=== PATIENT | female | born 1985 | race Caucasian/White ===

== ENCOUNTER 2018-03-15 16:31 | Observation (INO) | payer BC, SELFPAY ==
[2018-03-15] VITALS (10 sets, daily range): BP systolic 95–116; BP diastolic 53–67; PULSE 57–77; RESP 15–18; TEMP 36.7–37.5; O2SAT 92–100; BMI 29.3
--- NOTE | 2018-03-15 | APP_PTH ---
PATIENT: CHI DOMINGUEZ LOC: MS2 U#:[id number] AGE/SX: 32/F ROOM: [facility] RE03/15/[address]: Dr. Ambrose Stinson MD : [id number] BED: 1 DIS: 03/16/2018 SPEC #: [id number] RECD: 03/16/18 11:22 STATUS: CARY REEvaristo #: [id number] [place]: 03/15/18 00:[address]: Ambrose Stinson DEPT: SURGICAL PATHOLOGY RECD BY: Yoana Reyes ENTERED: 03/16/18 12:15 SP TYPE: APPENDIX OTHR DR: MD Angel Small MD Tissues: Appendix, NOS Procedures: Surgery Specimen Level III HEADER OPERATION: Laparoscopic, appendectomy PRE-OP DIAGNOSIS: Acute appendicitis TISSUE SUBMITTED: Appendix MICROSCOPIC DIAGNOSIS Appendix, appendectomy: Acute appendicitis and periappendicitis. SJ:az 03/17/18 MICROSCOPIC DESCRIPTION Slides are reviewed. GROSS DESCRIPTION Received is one container labeled with the patient's name and designated appendix. The specimen consists of a J-shaped appendix measuring 7.5 cm in length and up to 1 cm in average diameter. The attached periappendiceal adipose tissue measures up to 1.5 cm in width. The serosa is covered with posadas, purulent exudate. No obvious perforation is identified. The lumen does not contain any fecalith. Bosom Presser sections are submitted in one cassette. / SJ:az 03/16/18 TC:2 CPT: 56792
--- NOTE | 2018-03-15 16:54 | CT_ITS ---
STUDY: CT ABDOMEN AND PELVIS WITH CONTRAST REASON FOR EXAM: Female, 32 years old. Right lower quadrant pain. RADIATION DOSAGE (If Supplied By Facility): CTDIvol = ( 14.29 ) mGy, DLP = ( 789.25 ) mGycm TECHNIQUE: Transaxial images were obtained from the dome of the diaphragm to the symphysis pubis with oral contrast. 100 ml of Isovue 300 contrast was administered. Sagittal and coronal images were reconstructed. Individualized dose optimization techniques were used for this CT. COMPARISON: None. FINDINGS: The visualized lung bases are unremarkable. The visualized portions of the heart are within normal limits. Mild hepatomegaly versus Ysabel's lobe. The liver is otherwise unremarkable. Normal gallbladder and extrahepatic biliary system. Normal spleen. Normal pancreas. Normal bilateral adrenal glands. Normal right kidney. Normal left kidney. Normal visualized stomach. Normal small intestine. Normal colon. The gallbladder measures 1 cm in diameter. The gallbladder wall is 3 mm in thickness. There is no evidence of phlebolith. There is no marked right lower quadrant inflammatory change. Normal abdominal aorta. Normal inferior vena cava. Normal retroperitoneum. Normal urinary bladder. Normal uterus. There are follicles in both ovaries. There is an involuting cyst in the left ovary measuring 1.8 x 1.7 x 1.5 cm. No pelvic lymphadenopathy. No free air is seen in the abdominal cavity. There is minimal free fluid in the posterior cul-de-sac. To be physiologic. There is an umbilical hernia of omental fat. The abdominal wall is otherwise unremarkable. Normal osseous structures. CT/Abdomen/Pelvis WITH Contrast IMPRESSION: 1. Mildly distended thick-walled appendix without stranding. Question mild appendicitis. 2. Involuting left ovarian cyst. 3. Hepatomegaly versus Ysabel's lobe. Koffi Allen M.D., was advised of these findings via direct telephone communication at 1829 hours EST on March 15, 2018. Electronically Signed: Nitesh Castandea DO at 18:28 EDT Tel [phone], Service support ,
[2018-03-15] MEDS: 0.9% Normal Saline 1,000 ML 1000 ML IV (17:06)
[2018-03-15] MEDS: Morphine 4 MG/ML Syringe IV (17:06)
[2018-03-15] MEDS: Ondansetron 4 MG/2 ML Vial IV (17:06)
[2018-03-15 17:12] LABS: Mucous, Urine 0 SEEN /hpf (<or=2+)
[2018-03-15 17:14] LABS: Absolute Neutrophil Count 11.2 X10^3/uL (2.0-7.7); Basophil# 0.01 X10^3/uL; Basophil% 0.1 % (0-1); Eosinophil# 0.04 X10^3/uL; Eosinophils% 0.3 % (0-5); Hematocrit 40.7 % (37-47); Hemoglobin 13.5 g/dl (12.0-15.0); Lymphocyte % 7.6 % (19-41); Mean Corp Hgb Conc 33.2 g/gl (32-36); Mean Corpuscular Hgb 30.1 pg (27.0-32.0); Mean Corpuscular Volume 90.8 fL (81-99); Mean Platelet Vol. 9.2 fl (6.2-12.0); Monocyte# 0.85 X10^3/uL; Monocyte% 6.5 % (0-10); Neutrophil # 11.24 X10^3/uL (2.7-7.7); Neutrophil % 85.3 % (47-70); Platelet Count 270 K/mm3 (150-450); RBC Distribution Width CV 13.1 % (11.6-14.6); RBC Distribution Width SD 42.9 fl (35.1-43.9); Red Blood Count 4.48 M/mm3 (4.2-5.4); White Blood Count 13.2 K/mm3 (4.4-11.0)
[2018-03-15 17:16] LABS: POSITIVE COUNT NO; POSITIVE DIFFERENTIAL NO; POSITIVE MORPHOLOGY NO
[2018-03-15 17:23] LABS: Color, Urine Yellow (Yellow); Glucose, Dipstick Normal (Normal); Ketone-Dipstick 50 mg/dl (Negative); Leukocyte Esterase-Dipstick 100 /ul (Negative); Nitrite-Dipstick Negative (Negative); Occult Blood-Urine Negative /ul (Negative); Protein-Dipstick 15 mg/dl (Negative); Urine Bilirubin Dipstick Negative (Negative); Urine Clarity Sl. Cloudy (Clear); Urine Urobilinogen Normal (Normal)
[2018-03-15 17:31] LABS: Anion Gap 8 (5-15); BUN 9 mg/dL (7-18); Calcium,Total 8.5 mg/dL (8.5-10.1); Chloride 106 mmol/L (98-107); EST Glomerular Filtration Rate 78 mL/min (>60); Est Glom Filt Rate - Afr Amer 94 mL/min (>60); Estimated Creatinine Clearance 78.93 ml/min; Glucose 103 mg/dL (74-106); Potassium 3.7 mmol/L (3.5-5.1); Sodium Level 141 mmol/L (136-145)
[2018-03-15 17:38] LABS: Bacteria 1+ /hpf (None Seen); Red Blood Cells-Urine 0-5 SEEN /hpf (0-5); Squamous Epithelial Cells - UA 0-5 SEEN /hpf (5-10); White Blood Cells 5-10 SEEN /hpf (0-5)
[2018-03-15 17:54] LABS: Pregnancy, Serum, hCG Quali. NEGATIVE Negative (0-9 Nonpreg)
--- NOTE | 2018-03-15 18:24 | ED.DCSUM_ITS ---
- ER Visit Summary Date of Service: 03/15/18 Chief Complaint: Abdominal pain History of Present Illness: The patient is a [address] Angel Allen. She reports that she has abdominal pain began at 1:00 this morning. It began in the periumbilical region is moved to her lower abdomen. She describes as an aching pain that is gradually worsened. It is 9 out of 10 at worst and 7 out of 10 currently. Is worsened by movement or pushing on it. Is relieved by remaining still. She has been nausea and vomited twice. No blood or emesis. No diarrhea. Her last bowel was today. She has had no melena or rheumatic. No dysuria or frequency. Patient does complain of subjective fever and chills. Her last menstrual was approximately 2 weeks ago. She denies any vaginal bleeding or discharge. Physical Examination: Vitals: Stable. Afebrile. General: Well-nourished and well-developed. Head: Normocephalic atraumatic. Neck: Supple, no lymphadenopathy. No JVD. Nontender. Cardiovascular: Regular rate and rhythm. No murmurs. Respiratory: No respiratory distress. Clear to auscultation bilaterally. Abdominal: Soft, moderate diffuse dorsal patient over her lower abdomen that is worst in the right lower quadrant, nondistended, normal bowel sounds. No guarding, rebound, or peritoneal signs. Back: Nontender. Extremities: Nontender, no edema. Skin: Normal color, no rash. Neurologic: Alert and oriented ?3. Cranial nerves II through XII are intact. Normal strength and sensation. Psych: Normal affect. Test Results: CBC is remarkable for a white count of 13.2 with 85 segmented neutrophils and 8 lymphocytes. Chem-7 is normal. UA shows 5-10 white blood cells and 1+ bacteria. test is negative. CT shows early appendicitis. Emergency Department Course and Treatment: Patient was treated with morphine and Zofran IV. She is resting comfortably. She was given Zosyn IV. Treatment Plan: The patient was discussed with Dr. Ambrose Stinson. She will be taken to the operating room for further treatment. Disposition: Admitted in stable condition. Impression: 1. Appendicitis. This note was generated with [employer] dictation software. It may contain incorrect words, spelling, and punctuation that were not noted in review of the chart prior to signing ED Disposition - Plan for ED Patient: Chief Complaint: Abd Pain
--- NOTE | 2018-03-15 18:47 | PCM.HP.STD ---
Problem List (1) Acute appendicitis Status: Acute Qualifiers: Acute appendicitis type: unspecified acute appendicitis type Qualified Code(s): K35.80 - Unspecified acute appendicitis History of Present Illness Date of Admission: 03/15/18 The patient is a 32 year old F who developed severe abdominal pain last night. She had fever and chills. The pain persisted localizing to the right lower quadrant. Because the pain persisted she then went to see her primary care physician Dr. VANESSA Allen. He was concerned about possible surgical abdomen referred the patient to the emergency room. White blood cell count 13.2 with hemoglobin 13.5 and hematocrit 40.7 and platelet count of 270,000. Differential showing 85% neutrophils. Renal function is normal. Urinalysis has slight protein slight ketones. Leukocyte esterase is 100. White blood cells 5-10. 1+ bacteria. A CT scan was obtained suggesting an acute thick-walled appendix. 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 ?3 Smoking Status: Never smoker Tobacco Use: Non-smoker Review of Systems Constitutional: Reports: Chills, Fever, Night Sweats Eyes: Denies: Blurred vision HEENT: Denies: Difficulty Hearing Cardiovascular: Denies: Chest Pain Respiratory: Denies: Cough Gastrointestinal: Reports: Abdominal Pain Genitourinary: Denies: Dysuria Skin: Denies: Dryness Psychiatric: Denies: Anxiety Endocrine: Denies: Change in Body Habitus VTE Information - Inpt Only VTE Present on Admission: No Patient Problems: Active and Suspected Problems Acute appendicitis (Acute) - Physical Exam General: Alert, Oriented x3, Cooperative, No apparent distress HEENT: Atraumatic Oral: Moist Mucosa Neck: Supple Lungs: Clear to auscultation Cardiovascular: Regular rate, Regular Rhythm Abdomen: Soft, Hypoactive Bowel Sounds, - - Focally tender to palpation right lower quadrant with guarding Extremities: No clubbing Musculoskeletal: No Tenderness to Palpation of Joints or Extremities Neurological: Cranial nerves II-XII grossly intact Psych/Mental Status: Normal Affect Vital Signs Temp Pulse Resp BP Pulse Ox 98.1 F 77 15 116/67 100 03/15/18 16:32 03/15/18 16:32 03/15/18 16:32 03/15/18 16:32 03/15/18 16:32 Oxygen Delivery Method Room Air Weight: 170 lb 13.732 oz Body Mass Index (BMI) 29.3 Laboratory Tests Past 24 Hrs 03/15/18 03/15/18 03/15/18 17:05 17:05 17:05 WBC 13.2 H RBC 4.48 Hgb 13.5 Hct 40.7 MCV 90.8 MCH 30.1 MCHC 33.2 RDW 13.1 RDW Differential 42.9 Plt Count 270 MPV 9.2 Immature Gran % (Auto) 0.200 Neut % (Auto) 85.3 H Lymph % (Auto) 7.6 L [place] % (Auto) 6.5 Eos % (Auto) 0.3 Baso % (Auto) 0.1 Absolute Neuts (auto) 11.2 H Absolute Lymphs (auto) 1.00 Total Counted Not Reportable Sodium 141 Potassium 3.7 Chloride 106 Carbon Dioxide 27.0 Anion Gap 8 BUN 9 Creatinine 0.90 Estim Creat Clear Calc 78.93 Est GFR (MDRD) Af Amer 94 Est GFR (MDRD) Non-Af 78 BUN/Creatinine Ratio 10.0 Glucose 103 Calcium 8.5 Serum , Qual NEGATIVE Urine Color Urine Clarity Urine pH Ur Specific [place] Urine Protein Urine Glucose (UA) Urine Ketones Urine Occult Blood Urine Nitrite Urine Bilirubin Urine Urobilinogen Ur Leukocyte Esterase Urine RBC Urine WBC Ur Squamous Epith Cells Urine Bacteria Urine Mucus 03/15/18 17:05 WBC RBC Hgb Hct MCV MCH MCHC RDW RDW Differential Plt Count MPV Immature Gran % (Auto) Neut % (Auto) Lymph % (Auto) [place] % (Auto) Eos % (Auto) Baso % (Auto) Absolute Neuts (auto) Absolute Lymphs (auto) Total Counted Sodium Potassium Chloride Carbon Dioxide Anion Gap BUN Creatinine Estim Creat Clear Calc Est GFR (MDRD) Af Amer Est GFR (MDRD) Non-Af BUN/Creatinine Ratio Glucose Calcium Serum , Qual Urine Color Yellow Urine Clarity Sl. Cloudy Urine pH 6.0 Ur Specific [place] 1.010 Urine Protein 15 H Urine Glucose (UA) Normal Urine Ketones 50 H Urine Occult Blood Negative Urine Nitrite Negative Urine Bilirubin Negative Urine Urobilinogen Normal Ur Leukocyte Esterase 100 H Urine RBC 0-5 SEEN Urine WBC 5-10 SEEN Ur Squamous Epith Cells 0-5 SEEN Urine Bacteria 1+ Urine Mucus 0 SEEN Assessment/Plan All Active Problems Acute appendicitis (Acute) Spontaneous vaginal delivery (Acute) 38 weeks gestation of (Acute) Findings are very much consistent with acute appendicitis. With the patient's mother present I have discussed recommendations for lap scopic appendectomy. I did briefly discuss nonoperative therapy. She is aware of the technique, benefits, risks, alternatives. She has had an opportunity to ask and have questions answered. With a mild leukocytosis and now almost a 24 history of pain I prefer proceeding on directly. She has had an opportunity to ask and have questions answered. We will proceed as OR timing permits. Ambrose Stinson M.D., F.A.C.S.
--- NOTE | 2018-03-15 18:54 | HP.PCM_ITS ---
Problem List (1) Acute appendicitis Status: Acute Qualifiers: Acute appendicitis type: unspecified acute appendicitis type Qualified Code (s): K35.80 - Unspecified acute appendicitis History of Present Illness Date of Admission: 03/15/18 The patient is a 32 year old F who developed severe abdominal pain last night. She had fever and chills. The pain persisted localizing to the right lower quadrant. Because the pain persisted she then went to see her primary care physician Dr. VANESSA Allen. He was concerned about possible surgical abdomen referred the patient to the emergency room. White blood cell count 13.2 with hemoglobin 13.5 and hematocrit 40.7 and platelet count of 270,000. Differential showing 85% neutrophils. Renal function is normal. Urinalysis has slight protein slight ketones. Leukocyte esterase is 100. White blood cells 5-10. 1+ bacteria. A CT scan was obtained suggesting an acute thick- walled appendix. 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 ?3 Smoking Status: Never smoker Tobacco Use: Non-smoker Review of Systems Constitutional: Reports: Chills, Fever, Night Sweats Eyes: Denies: Blurred vision HEENT: Denies: Difficulty Hearing Cardiovascular: Denies: Chest Pain Respiratory: Denies: Cough Gastrointestinal: Reports: Abdominal Pain Genitourinary: Denies: Dysuria Skin: Denies: Dryness Psychiatric: Denies: Anxiety Endocrine: Denies: Change in Body Habitus VTE Information - Inpt Only VTE Present on Admission: No Patient Problems: Active and Suspected Problems Acute appendicitis (Acute) - Physical Exam General: Alert, Oriented x3, Cooperative, No apparent distress HEENT: Atraumatic Oral: Moist Mucosa Neck: Supple Lungs: Clear to auscultation Cardiovascular: Regular rate, Regular Rhythm Abdomen: Soft, Hypoactive Bowel Sounds, - - Focally tender to palpation right lower quadrant with guarding Extremities: No clubbing Musculoskeletal: No Tenderness to Palpation of Joints or Extremities Neurological: Cranial nerves II-XII grossly intact Psych/Mental Status: Normal Affect Vital Signs Temp Pulse Resp BP Pulse Ox 98.1 F 77 15 116/67 100 03/15/18 16:32 03/15/18 16:32 03/15/18 16:32 03/15/18 16:32 03/15/18 16:32 Oxygen Delivery Method Room Air Weight: 170 lb 13.732 oz Body Mass Index (BMI) 29.3 Laboratory Tests Past 24 Hrs 03/15/18 03/15/18 03/15/18 17:05 17:05 17:05 WBC 13.2 H RBC 4.48 Hgb 13.5 Hct 40.7 MCV 90.8 MCH 30.1 MCHC 33.2 RDW 13.1 RDW Differential 42.9 Plt Count 270 MPV 9.2 Immature Gran % (Auto) 0.200 Neut % (Auto) 85.3 H Lymph % (Auto) 7.6 L [place] % (Auto) 6.5 Eos % (Auto) 0.3 Baso % (Auto) 0.1 Absolute Neuts (auto) 11.2 H Absolute Lymphs (auto) 1.00 Total Counted Not Reportable Sodium 141 Potassium 3.7 Chloride 106 Carbon Dioxide 27.0 Anion Gap 8 BUN 9 Creatinine 0.90 Estim Creat Clear Calc 78.93 Est GFR (MDRD) Af Amer 94 Est GFR (MDRD) Non-Af 78 BUN/Creatinine Ratio 10.0 Glucose 103 Calcium 8.5 Serum , Qual NEGATIVE Urine Color Urine Clarity Urine pH Ur Specific [place] Urine Protein Urine Glucose (UA) Urine Ketones Urine Occult Blood Urine Nitrite Urine Bilirubin Urine Urobilinogen Ur Leukocyte Esterase Urine RBC Urine WBC Ur Squamous Epith Cells Urine Bacteria Urine Mucus 03/15/18 17:05 WBC RBC Hgb Hct MCV MCH MCHC RDW RDW Differential Plt Count MPV Immature Gran % (Auto) Neut % (Auto) Lymph % (Auto) [place] % (Auto) Eos % (Auto) Baso % (Auto) Absolute Neuts (auto) Absolute Lymphs (auto) Total Counted Sodium Potassium Chloride Carbon Dioxide Anion Gap BUN Creatinine Estim Creat Clear Calc Est GFR (MDRD) Af Amer Est GFR (MDRD) Non-Af BUN/Creatinine Ratio Glucose Calcium Serum , Qual Urine Color Yellow Urine Clarity Sl. Cloudy Urine pH 6.0 Ur Specific [place] 1.010 Urine Protein 15 H Urine Glucose (UA) Normal Urine Ketones 50 H Urine Occult Blood Negative Urine Nitrite Negative Urine Bilirubin Negative Urine Urobilinogen Normal Ur Leukocyte Esterase 100 H Urine RBC 0-5 SEEN Urine WBC 5-10 SEEN Ur Squamous Epith Cells 0-5 SEEN Urine Bacteria 1+ Urine Mucus 0 SEEN Assessment/Plan All Active Problems Acute appendicitis (Acute) Spontaneous vaginal delivery (Acute) 38 weeks gestation of (Acute) Findings are very much consistent with acute appendicitis. With the patient's mother present I have discussed recommendations for lap scopic appendectomy. I did briefly discuss nonoperative therapy. She is aware of the technique, benefits, risks, alternatives. She has had an opportunity to ask and have questions answered. With a mild leukocytosis and now almost a 24 history of pain I prefer proceeding on directly. She has had an opportunity to ask and have questions answered. We will proceed as OR timing permits. Ambrose Stinson M.D., F.A.C.S.
--- NOTE | 2018-03-15 18:57 | DCINST_ITS ---
Discharge Diet: Light diet - advance as tolerated - if you have questions about your diet instructions, please talk to you doctor. Discharge Activity: May Not Drive - for 1 week or while taking narcotic pain medicine. May shower in (days): 1 Lifting Restrictions: 10 pounds Call your doctor if your incision/area has: Continuous Slow Oozing, Sudden Increased Bleeding, Increased Pain/ Swelling, Increased Redness, Foul Smelling Discharge Call your doctor if you observe: Fever of 101 or Higher Suture Line Care: Avoid Pulling/Pushing, Avoid Pinching/Bending Additional Dressing/Incision Instructions:: Change or remove dressing in 4 days. Leave steri-strips in place for 1 week. Allergies/Adverse Reactions: Allergies No Known Allergies Allergy (Verified 03/15/18 16:36) Primary Care Physician: Angel Allen MD [Primary Care Provider] - Test Results: Test results from this visit will be discussed in further detail at your follow- up appointment, if applicable. Please Follow Up With: Ambrose Stinson MD - [phone] When: Call to make an appointment to be seen in about 10 days.
[2018-03-15] MEDS: Bupivacaine Mpf 0.5% 30 ML VIAL (20:09)
--- NOTE | 2018-03-15 20:26 | OP.PCM_ITS ---
Problem List (1) Acute appendicitis Status: Acute Qualifiers: Acute appendicitis type: unspecified acute appendicitis type Qualified Code (s): K35.80 - Unspecified acute appendicitis Report of Operation Date of Procedure: 03/15/18 Pre-Operative Diagnosis: Acute appendicitis Post-Operative Diagnosis: Acute appendicitis with focal peritonitis Surgery/Procedure Performed:: Laparoscopic appendectomy Description of Surgical Findings:: Timeout and informed consent was obtained. 32-year-old female was taken the operating room. She had therapeutic Zosyn 3.375 g in the emergency room. She underwent general ventricular-based anesthesia. The abdomen sterilely prepped draped. 0.5% Marcaine was used as local anesthetic. A total 20 cc was used. Skin sites were pre-anesthetized. A vertical infraumbilical incision was created. Holding sutures of 0 Vicryl placed varies needle inserted. The abdomen was insufflated with CO2 to pressure of 10 mm pressure. 10 mm trocar inserted. Five-minute trochars are placed in the suprapubic and low mid abdomen. Abdomen was inspected no trocar injuries. Acute purulent material is noted in the pelvis. This was aspirated and sent for Gram stain culture and sensitivity. The appendix was noted to be acutely inflamed but did not appear to be perforated. A window was made in the mesoappendix of 45 mm stapler used to transect the appendix flush with the cecum. The vascular stapler was used to transect the mesoappendix. An additional Hem-o-brittnee clip was used to confirm hemostasis. The right lower quadrant was aspirated free. Hemostasis was intact. The appendix was placed in retrieval bag and exited the umbilicus. The remaining trochars removed under visualization. The abdomen was allowed to deflate of the CO2. The fascia at the umbilicus approximated interrupted 0 Vicryl figure 8 suture. Skin edges proximate interrupted 4 Monocryl subdermal stitches. Steri-Strips Telfa and OpSite dressings applied. Sponge and instrument and needle counts were reported to the surgeon be correct. Blood loss was minimal. Specimens appendix. Drains none. Ambrose Stinson M.D., F.A.C.S. Type of Anesthesia:: General Anesthesiologist: Farida Mann
[2018-03-15] MEDS: Lactated Ringers 1,000 ML 50 ML IV (21:30)
[2018-03-16 01:30] VITALS: BP 107/58; PULSE 61; RESP 18; TEMP 37.2; O2SAT 95
[2018-03-16 05:41] VITALS: BP 93/40; PULSE 67; RESP 16; TEMP 37.1; O2SAT 96
[2018-03-16] MEDS: Piperacil/Tazobactam 3.375 GM/50 ML ML IV (05:55)
[2018-03-16 06:06] LABS: Absolute Lymphocyte Count 0.62 X10^3/ul (0.83-4.51); Basophil# 0.01 X10^3/uL; Basophil% 0.1 % (0-1); Hematocrit 36.8 % (37-47); Hemoglobin 12.1 g/dl (12.0-15.0); Lymphocyte # 0.62 X10^3/ul (4.0); Lymphocyte % 7.9 % (19-41); Mean Corp Hgb Conc 32.9 g/gl (32-36); Mean Corpuscular Hgb 30.2 pg (27.0-32.0); Mean Corpuscular Volume 91.8 fL (81-99); Mean Platelet Vol. 9.7 fl (6.2-12.0); Monocyte# 0.21 X10^3/uL; Monocyte% 2.7 % (0-10); Neutrophil # 6.98 X10^3/uL (2.7-7.7); Neutrophil % 89.2 % (47-70); Platelet Count 238 K/mm3 (150-450); RBC Distribution Width CV 12.8 % (11.6-14.6); RBC Distribution Width SD 42.2 fl (35.1-43.9); Red Blood Count 4.01 M/mm3 (4.2-5.4); White Blood Count 7.8 K/mm3 (4.4-11.0)
[2018-03-16 06:13] LABS: POSITIVE COUNT NO; POSITIVE DIFFERENTIAL NO; POSITIVE MORPHOLOGY NO
--- NOTE | 2018-03-16 06:15 | PN.SURG_ITS ---
Patient Problems: Active and Suspected Problems Acute appendicitis (Acute) Subjective: Pt states she feels much better than on admission Flatus, no nausea - Physical Exam Abdomen: Soft, Non Tender, Hypoactive Bowel Sounds Vital Signs Temp Pulse Resp BP Pulse Ox 98.7 F 67 16 93/40 L 96 03/16/18 05:41 03/16/18 05:41 03/16/18 05:41 03/16/18 05:41 03/16/18 05:41 Oxygen Delivery Method Room Air Weight: 170 lb 13.732 oz Body Mass Index (BMI) 29.3 Intake and Output for Last 24 Hours 03/14/18 03/15/18 03/16/18 23:59 23:59 23:59 Intake Total 2375 / 2375 408 / 408 Output Total 400 / 400 200 / 200 Balance 1974 208 / 208 Laboratory Tests Past 24 Hrs 03/15/18 03/15/18 03/15/18 17:05 17:05 17:05 WBC 13.2 H RBC 4.48 Hgb 13.5 Hct 40.7 MCV 90.8 MCH 30.1 MCHC 33.2 RDW 13.1 RDW Differential 42.9 Plt Count 270 MPV 9.2 Immature Gran % (Auto) 0.200 Neut % (Auto) 85.3 H Lymph % (Auto) 7.6 L [place] % (Auto) 6.5 Eos % (Auto) 0.3 Baso % (Auto) 0.1 Absolute Neuts (auto) 11.2 H Absolute Lymphs (auto) 1.00 Total Counted Not Reportable Sodium 141 Potassium 3.7 Chloride 106 Carbon Dioxide 27.0 Anion Gap 8 BUN 9 Creatinine 0.90 Estim Creat Clear Calc 78.93 Est GFR (MDRD) Af Amer 94 Est GFR (MDRD) Non-Af 78 BUN/Creatinine Ratio 10.0 Glucose 103 Calcium 8.5 Serum , Qual NEGATIVE Urine Color Urine Clarity Urine pH Ur Specific [place] Urine Protein Urine Glucose (UA) Urine Ketones Urine Occult Blood Urine Nitrite Urine Bilirubin Urine Urobilinogen Ur Leukocyte Esterase Urine RBC Urine WBC Ur Squamous Epith Cells Urine Bacteria Urine Mucus 03/15/18 03/16/18 17:05 05:12 WBC 7.8 RBC 4.01 L Hgb 12.1 Hct 36.8 L MCV 91.8 MCH 30.2 MCHC 32.9 RDW 12.8 RDW Differential 42.2 Plt Count 238 MPV 9.7 Immature Gran % (Auto) 0.100 Neut % (Auto) 89.2 H Lymph % (Auto) 7.9 L [place] % (Auto) 2.7 Eos % (Auto) 0.0 Baso % (Auto) 0.1 Absolute Neuts (auto) 7.0 Absolute Lymphs (auto) 0.62 L Total Counted Not Reportable Sodium Potassium Chloride Carbon Dioxide Anion Gap BUN Creatinine Estim Creat Clear Calc Est GFR (MDRD) Af Amer Est GFR (MDRD) Non-Af BUN/Creatinine Ratio Glucose Calcium Serum , Qual Urine Color Yellow Urine Clarity Sl. Cloudy Urine pH 6.0 Ur Specific [place] 1.010 Urine Protein 15 H Urine Glucose (UA) Normal Urine Ketones 50 H Urine Occult Blood Negative Urine Nitrite Negative Urine Bilirubin Negative Urine Urobilinogen Normal Ur Leukocyte Esterase 100 H Urine RBC 0-5 SEEN Urine WBC 5-10 SEEN Ur Squamous Epith Cells 0-5 SEEN Urine Bacteria 1+ Urine Mucus 0 SEEN Medical Necessity - Tobacco Use Smoking Status: Never smoker Tobacco Use: Non-smoker Assessment/Plan All Active Problems Acute appendicitis (Acute) Spontaneous vaginal delivery (Acute) 38 weeks gestation of (Acute) Pt has localized peritonitis at time of surgery Will check gram stain on peritoneal fluid and await CBC Consider home today on short 3 day course of augmentin
[2018-03-16 08:30] VITALS: BP 96/51; PULSE 65; RESP 16; TEMP 36.8; O2SAT 99
== END 2018-03-16 10:05 | disposition home or self-care (01) ==
LOC: ED 17:06 → SDC 18:40 → AC 18:40 → MS3 03-16 13:18 → MS2 03-16 13:26
PROVIDERS: Admitting Provider Surgery; Emergency Provider Emergency Medicine; Family Provider Family Medicine; PCP Family Medicine; Visit Provider Surgery
PROC: 0DTJ4ZZ Resection of Appendix, Percutaneous Endoscopic Approach (ICD-10-PCS; CPT 44970; principal; 2018-03-15 19:30)
DX: K35.3 Acute appendicitis with localized peritonitis (principal)
CPT/HCPCS: 44970; 36415; 74177; 80048; 81001; 84703; 85025; 87070; 87075; 87205; 88304; 96365; 96366; 96375; 99218; 99282; J7030; J7120; Q9967; A4216; G0378; J2405

== ENCOUNTER → 2018-09-20 14:02 | Outpatient (CLI) | payer BC, SELFPAY ==
[2018-09-24 11:16] LABS: HPV Reflexed? NOT INDICATED
== END ==
PROVIDERS: Visit Provider Obstetrics & Gynecology
DX: Z12.4 Encounter for screening for malignant neoplasm of cervix (principal)
CPT/HCPCS: 88175; G0145

== ENCOUNTER → 2022-04-09 | Outpatient (CLI) | payer BC, OTHER, SELFPAY ==
[2022-06-30 16:45] LABS: HPV HIGH RISK 16/18 Negative; HPV Reflexed? YES, CHARGE PATIENT
== END | disposition home or self-care (01) ==
LOC: LABSPEC 14:54
PROVIDERS: PCP Family Medicine; Referring Provider Family Medicine; Visit Provider Family Medicine
DX: Z12.4 Encounter for screening for malignant neoplasm of cervix (principal)
CPT/HCPCS: 87491; 87591; 87624; 88175; G0145

== ENCOUNTER → 2022-04-13 | Outpatient (CLI) | payer BC, SELFPAY ==
--- NOTE | 2022-04-13 09:48 | US_ITS ---
STUDY: ULTRASOUND TRANSVAGINAL CLINICAL: Female, 36 years old. abd dist -- family history of endometriosis TECHNIQUE: Transvaginal COMPARISON: None. FINDINGS: Normal uterine size measuring 9.9 x 6.5 x 5.0 cm in maximal craniocaudal dimension. There are no myometrial masses. However the uterus demonstrates heterogeneous echo architecture suggestive of adenomyosis. There are a few normal variant follicular cysts at the cervix. Normal endometrial thickness measuring 9.4 mm. There are no endometrial masses, and there is no fluid in the endometrial cavity. Normal uterine cervix. Normal right ovary, measuring 3.1 x 1.9 x 2.2 cm. There are multiple follicles without a dominant cyst. Normal left ovary, measuring 3.4 x 2.3 x 1.8 cm cm. There are multiple follicles without a dominant cyst. There is no free fluid in the pelvis. Polycystic ovary disease: No. US/Transvaginal Non- IMPRESSION: Inhomogeneous echo architecture of the uterus suggestive of adenomyosis. Normal variant follicular cysts at the cervix. Electronically Signed: Dixon Osman MD, DOMINIC at 10:45 EDT ,
== END | disposition home or self-care (01) ==
PROVIDERS: PCP Family Medicine; Referring Provider Family Medicine; Visit Provider Family Medicine
DX: R14.0 Abdominal distension (gaseous) (principal)
CPT/HCPCS: 76830

== ENCOUNTER → 2022-05-04 | Outpatient (CLI) | payer BC, SELFPAY ==
[2022-05-04 15:18] LABS: Absolute Lymphocyte Count 2.14 X10^3/uL (0.83-4.51); Absolute Neutrophil Count 3.4 X10^3/uL (2.0-7.7); Basophil# 0.09 X10^3/uL; Basophil% 1.4 % (0-1); Eosinophil# 0.25 X10^3/uL; Eosinophils% 3.9 % (0-5); Hematocrit 40.6 % (37-47); Hemoglobin 13.2 g/dL (12.0-15.0); Lymphocyte # 2.14 X10^3/ul (0.83-4.51); Lymphocyte % 33.7 % (19-41); Mean Corp Hgb Conc 32.5 g/dL (32-36); Mean Corpuscular Hgb 30.6 pg (27.0-32.0); Mean Corpuscular Volume 94.2 fL (81-99); Mean Platelet Vol. 9.6 fl (6.2-12.0); Monocyte# 0.44 X10^3/uL; Monocyte% 6.9 % (0-10); NRBC Flagged by Analyzer 0 % (0-5); Neutrophil # 3.42 X10^3/uL (2.7-7.7); Neutrophil % 53.9 % (47-70); Platelet Count 352 K/mm3 (150-450); RBC Distribution Width CV 13.1 % (11.6-14.6); RBC Distribution Width SD 45.1 fl (35.1-43.9); Red Blood Count 4.31 M/mm3 (4.2-5.4); White Blood Count 6.4 K/mm3 (4.4-11.0)
[2022-05-04 15:55] LABS: ALB/GLOB Ratio 1.1 RATIO (0.9-2.4); AST(SGOT) 25 U/L (15-37); Alanine Aminotransfer ALT/SGPT 29 U/L (13-56); Albumin, Serum 3.7 g/dL (3.2-5.0); Alkaline Phosphatase 57 U/L (45-117); Anion Gap 6 (5-15); BUN 11 mg/dL (7-18); BUN/Creat Ratio 11.4 RATIO (10-20); Calcium,Total 8.5 mg/dL (8.5-10.1); Chloride 107 mmol/L (98-107); Cholesterol 142 mg/dL (200); Creatinine, Serum 0.96 mg/dL (0.55-1.02); EST Glomerular Filtration Rate 70 mL/min (>60); Est Glom Filt Rate - Afr Amer 85 mL/min (>60); Globulin 3.5 g/dL (2.2-4.2); Glucose 78 mg/dL (74-106); High Density Lipoprotein 69 mg/dL; Potassium 3.7 mmol/L (3.5-5.1); Protein, Total 7.2 g/dL (6.4-8.2); Sodium Level 141 mmol/L (136-145); Thyroid Stim Hormone (TSH) 1.47 uIU/mL (0.358-3.74); Triglycerides 37 mg/dL; Very Low Density Lipoprotein 7 mg/dL (5-40)
[2022-05-04 17:05] LABS: Hemoglobin A1c 5.2 % (3.8-5.6)
== END | disposition home or self-care (01) ==
LOC: MFPLAB 11:46
PROVIDERS: PCP Family Medicine; Visit Provider Family Medicine
DX: Z13.29 Encounter for screening for other suspected endocrine disorder (principal); Z13.220 Encounter for screening for lipoid disorders; Z13.1 Encounter for screening for diabetes mellitus; Z13.0 Encounter for screening for diseases of the blood and blood-forming organs and certain disorders involving the immune mechanism; Z00.00 Encounter for general adult medical examination without abnormal findings
CPT/HCPCS: 36415; 80053; 80061; 83036; 84443; 85025